=== PATIENT | female | born 1955 | race Caucasian/White ===

== ENCOUNTER 2016-09-06 22:04 | Emergency (ER) | payer OTHER ==
[~2016-09-06] VITALS: Ht 154.9 cm; Wt 88.4 kg
[2016-09-06 22:13] VITALS: BP 120/68; PULSE 83; RESP 16; TEMP 97.7; O2SAT 94
[2016-09-06] MEDS ORDERED: QUET1TAB7 PO (23:17)
[2016-09-06] MEDS ORDERED: MAGN500T4 PO (23:17)
[2016-09-06] MEDS ORDERED: PRIL20TA2 PO (23:17)
[2016-09-06] MEDS ORDERED: ZETI10TA5 PO (23:17)
[2016-09-06] MEDS ORDERED: METO25TA3 PO (23:17)
[2016-09-06] MEDS ORDERED: LEVO100T5 PO (23:17)
[2016-09-06] MEDS ORDERED: ASPI81TA81 PO (23:17)
[2016-09-06] MEDS ORDERED: GLYB5TAB3 PO (23:17)
[2016-09-06] MEDS ORDERED: BUSP30TA PO (23:17)
[2016-09-06] MEDS ORDERED: TRAZ100T4 PO ×2 (23:17→23:36)
[2016-09-06] MEDS ORDERED: CYMB60CA PO (23:17)
[2016-09-06] MEDS ORDERED: traZODone HCL 100 MG TAB PO ONE (23:30)
--- NOTE | 2016-09-06 23:37 | PD ---
HPI Chief Complaint: Medication Refill Request Time Seen by Provider: 23:28 Travel History International Travel<30 days: No Contact w/Intl Traveler<30days: No Traveled to known affect area: No History of Present Illness HPI 61-year-old female presents to the emergency department by private vehicle the care of family for medication refill and anxiety attack. Patient recently moved here 3 days ago from [place]. Patient did not follow-up with her managing physician in [place] prior to moving to have all of her medications refilled. Patient has run out of her trazodone after moving to the area 3 days ago and has not been taking her trazodone for the past 2 days. Patient takes this to help her sleep at night and for anxiety. Patient denies other concerns or complaints. Patient also has medication for blood pressure control and for hypothyroidism but has a week's supply of these medications available and is in the process of working with [facility] to establish with a primary care provider. Patient however is out of trazodone and has been on this medication for several years and presents now requesting refill of medication and possible dose of medication tonight so that she has time to fill the prescriptions tomorrow. Patient does not voice any other complaints. Patient is not reporting any suicidal or homicidal ideation. Patient denies fever chills headache visual disturbance sinus pressure drainage sore throat earache neck pain chest pain palpitations sweats shortness of breath wheezing cough nausea vomiting abdominal pain diarrhea constipation dysuria frequency urgency flank pain hematuria or vaginal bleeding joint pain swelling or skin rash or injury. PFSH Past Medical History Narrative Medical Anxiety depression dyslipidemia hypertension hypothyroidism; no reported tobaccoism; nursing notes reviewed Social History Tobacco Use: No Allergies-Medications (Allergen,Severity, Reaction): Coded Allergies: Prozac (Verified Allergy, Unknown, 09/06/16) THOUGHTS OF SUICIDE Albuterol (Verified Adverse Reaction, Unknown, Dizziness, 09/06/16) Codeine (Verified Adverse Reaction, Unknown, 09/06/16) "I GET SWEATY" Penicillin (Verified Adverse Reaction, Unknown, 09/06/16) "MY EYES ROLE UP IN MY HEAD". Reported Meds & Prescriptions Reported Meds & Active Scripts Active Trazodone (Trazodone HCl) 100 Mg Tab 100 Mg PO HS Reported Prilosec (Omeprazole Magnesium) 20 Mg Tab 40 Mg PO BID Magnesium 500 Mg Tab 500 Mg PO DAILY Aspir-81 (Aspirin) 81 Mg Tabdr 81 Mg PO DAILY Glyburide 5 Mg Tab 10 Mg PO DAILY Take with meals at the same time each day Zetia (Ezetimibe) 10 Mg Tab 10 Mg PO DAILY Cymbalta DR (Duloxetine HCl) 60 Mg Capdr 60 Mg PO DAILY Buspirone (Buspirone HCl) 30 Mg Tab 30 Mg PO BID Quetiapine (Quetiapine Fumarate) 25 Mg Tab 25 Mg PO DAILY Trazodone (Trazodone HCl) 100 Mg Tab 200 Mg PO HS Metoprolol Tartrate 25 Mg Tab 25 Mg PO BID Levothyroxine (Levothyroxine Sodium) 100 Mcg Tab 100 Mcg PO DAILY Review of Systems Except as stated in HPI: all other systems reviewed are Neg Physical Exam Narrative GENERAL: Well-developed well-nourished female in no acute distress no respiratory distress SKIN: Warm and dry. HEAD: Normocephalic. EYES: No scleral icterus. No injection or drainage. NECK: Supple, trachea midline. No JVD or lymphadenopathy. CARDIOVASCULAR: Regular rate and rhythm without murmurs, gallops, or rubs. RESPIRATORY: Breath sounds equal bilaterally. No accessory muscle use. GASTROINTESTINAL: Abdomen soft, non-tender, nondistended. MUSCULOSKELETAL: No cyanosis, or edema. BACK: Nontender without obvious deformity. No CVA tenderness. Data Data Last Documented VS Vital Signs Date Time Temp Pulse Resp B/P Pulse Ox O2 Delivery O2 Flow Rate FiO2 09/07/16 00:03 74 20 140/77 94 09/06/16 22:13 97.7 Orders Trazodone (Desyrel) (09/06/16 23:30) [facility] Medical Decision Making Medical Screen Exam Complete: Yes Emergency Medical Condition: Yes Medical Record Reviewed: Yes Differential Diagnosis Medication refill, anxiety Narrative Course Patient is here with supportive family as she has been out of trazodone for 3 days and does not have a local provider. Patient is here to have medication refilled and has felt anxious since being out of her medication. Patient given her evening dose of trazodone and a prescription for trazodone 100mg one by mouth at bedtime dispense #15. Medications otherwise reviewed and patient is found to have a weeks supply remaining of her other maintenance medications. Patient is encouraged to follow-up with her insurer to identify for her providers in this community as well as offered resources to case management to help find her a provider if possible. Diagnosis Primary Impression: Medication refill Additional Impression: Anxiety Referrals: Primary Care Physician call for appointment Patient Instructions: General Instructions Additional Instructions: Follow-up with primary care provider Return to the emergency department for any concerns or change in condition take medication as prescribed Med/Other Pt SpecificInfo: Prescription(s) given Scripts Trazodone 100 Mg [id number] Mg PO HS #15 TAB Ref 0 Prov:Batool Doss MD 09/06/16 Disposition: 01 DISCHARGE HOME Condition: Stable Batool Doss MD Sep 06, 2016 23:37
[2016-09-07 00:03] VITALS: BP 140/77
== END 2016-09-07 00:48 | disposition home or self-care (01) ==
LOC: PHED 22:04
DX: Z76.0 Encounter for issue of repeat prescription (principal); F41.9 Anxiety disorder, unspecified; I10 Essential (primary) hypertension; E03.9 Hypothyroidism, unspecified; E78.5 Hyperlipidemia, unspecified; Z86.59 Personal history of other mental and behavioral disorders
CPT/HCPCS: 99283